=== PATIENT | female | born 1940 | race Caucasian/White ===

== ENCOUNTER 2017-06-14 17:01 | Day surgery (SDC) | payer MEDICARE, OTHER ==
[~2017-06-14] VITALS: Ht 180.3 cm; Wt 89.0 kg
[~2017-06-14 17:01] MED LIST: GABA300C3 PO; LITH450T PO; NYST100010 PO; PROP80TA PO; SYNT25TA PO; VITA100018 PO
[2017-06-14 17:10] VITALS: BP 123/67; PULSE 88; RESP 16; TEMP 98.4; O2SAT 95
[2017-06-14] MEDS ORDERED: SODIUM CHLOR 0.9% 1000 ML INJ 1,000 ML IV SCH (17:30)
[2017-06-14] MEDS ORDERED: SODIUM CHLORIDE 0.9% FLUSH 10 ML FLUSH IV FLUSH PRN (17:30)
--- NOTE | 2017-06-14 17:36 | PD ---
HPI Chief Complaint: Neuro Symptoms/ Deficits Time Seen by Provider: 17:19 Travel History International Travel<30 days: No Contact w/Intl Traveler<30days: No Traveled to known affect area: No History of Present Illness HPI The patient is a 76-year-old female who presents to the emergency department for difficulty swallowing. The patient states she was having Easter dinner yesterday, approximately 2 PM, which she swallowed pork chops and apples. The patient felt like the food got stuck just below the neck, has had difficulty swallowing since then. She is unable to swallow her pills last night and is unable to tolerate liquids or solids today. The patient feels like something is stuck just below the neck, she has been spitting up her saliva all night, had to sleep upright in a recliner. The patient has not been able to tolerate any liquids today. She does have a history of dysphasia, has seen speech therapy in the past for difficulty swallowing, however, states this is different and may be secondary to a fluid bolus. She does not have a design technology professor. She denies any chest pain, shortness of breath, nausea, vomiting, or abdominal pain. Symptoms are moderate. PFSH Past Medical History Cerebrovascular Accident: Yes Diminished Hearing: Yes (TELLER) Hypertension: Yes Thyroid Disease: Yes (HYPO) Social History Alcohol Use: No Tobacco Use: No Substance Use: No Allergies-Medications (Allergen,Severity, Reaction): Coded Allergies: bacitracin (Unverified Allergy, Mild, BLISTERS, 06/14/17) gramicidin D (Unverified Allergy, Mild, BLISTERS, 06/14/17) neomycin (Unverified Allergy, Mild, BLISTERS, 06/14/17) polymyxin B (Unverified Allergy, Mild, BLISTERS, 06/14/17) povidone-iodine (Unverified Allergy, Mild, BLISTERS, 06/14/17) clindamycin (Verified Allergy, Unknown, 06/14/17) Reported Meds & Prescriptions Reported Meds & Active Scripts Active Reported [place] Carbonate ER ([place] Carbonate) 450 Mg Tab 450 Mg PO DAILY Imitrex (Sumatriptan Succinate) 100 Mg Tab 100 Mg PO ONCE PRN If a satisfactory response has not been obtained at 2 hours, a second dose may be administered Procardia (Nifedipine) 10 Mg Cap 20 Mg PO BID Gabapentin 100 Mg Cap 100 Mg PO TID Review of Systems Except as stated in HPI: all other systems reviewed are Neg General / Constitutional: No: Fever HENT: No: Neck Pain Cardiovascular: No: Chest Pain or Discomfort Respiratory: No: Shortness of Breath Gastrointestinal: Positive: Dysphagia, No: Nausea, Vomiting, Abdominal Pain Musculoskeletal: No: Weakness Neurologic: No: Dizziness Physical Exam Narrative GENERAL: Awake, alert, pleasant 76-year-old female who appears her stated age and is in no acute respiratory distress. Patient is sitting upright, spitting into an emesis bag. SKIN: Focused skin assessment warm/dry. HEAD: Atraumatic. Normocephalic. EYES: Pupils equal and round. No scleral icterus. No injection or drainage. ENT: No nasal bleeding or discharge. Mucous membranes pink and moist. NECK: Trachea midline. No JVD. CARDIOVASCULAR: Regular rate and rhythm. No murmur appreciated. RESPIRATORY: No accessory muscle use. Clear to auscultation. Breath sounds equal bilaterally. GASTROINTESTINAL: Abdomen soft, non-tender, nondistended. No rebound tenderness. MUSCULOSKELETAL: No obvious deformities. No clubbing. No cyanosis. No edema. NEUROLOGICAL: Awake and alert. No obvious cranial nerve deficits. Motor grossly within normal limits. Normal speech. PSYCHIATRIC: Appropriate mood and affect; insight and judgment normal. Data Data Last Documented VS Vital Signs Date Time Temp Pulse Resp B/P (MAP) Pulse Ox O2 Delivery O2 Flow Rate FiO2 06/14/17 18:00 98 Room Air 06/14/17 18:00 82 18 119/58 (78) 06/14/17 17:10 98.4 Orders Orders Complete Blood Count With Diff (06/14/17 17:30) Comprehensive Metabolic Panel (06/14/17 17:30) Prothrombin Time / Inr (Pt) (06/14/17 17:30) Act Partial Throm Time (Ptt) (06/14/17 17:30) Iv Access Insert/Monitor (06/14/17 17:30) Ecg Monitoring (06/14/17 17:30) Oximetry (06/14/17 17:30) Sodium Chlor 0.9% 1000 Ml Inj (Ns 1000 M (06/14/17 17:30) Sodium Chloride 0.9% Flush (Ns Flush) (06/14/17 17:30) NPO (06/14/17 17:30) Glucagon Inj (Glucagon Inj) (06/14/17 17:45) Admit Order (Ed Use Only) (06/14/17 19:08) Labs Laboratory Tests Test 06/14/17 17:50 White Blood Count 10.3 TH/MM3 Red Blood Count 3.56 MIL/MM3 Hemoglobin 11.2 GM/DL Hematocrit 34.8 % Mean Corpuscular Volume 97.9 FL Mean Corpuscular Hemoglobin 31.5 PG Mean Corpuscular Hemoglobin Concent 32.2 % Red Cell Distribution Width 13.6 % Platelet Count 210 TH/MM3 Mean Platelet Volume 8.2 FL Neutrophils (%) (Auto) 86.8 % Lymphocytes (%) (Auto) 10.1 % Monocytes (%) (Auto) 2.7 % Eosinophils (%) (Auto) 0.3 % Basophils (%) (Auto) 0.1 % Neutrophils # (Auto) 9.0 TH/MM3 Lymphocytes # (Auto) 1.0 TH/MM3 Monocytes # (Auto) 0.3 TH/MM3 Eosinophils # (Auto) 0.0 TH/MM3 Basophils # (Auto) 0.0 TH/MM3 CBC Comment DIFF FINAL Differential Comment Prothrombin Time 10.6 SEC Prothromb Time International Ratio 1.0 RATIO Activated Partial Thromboplast Time 24.3 SEC Blood Urea Nitrogen 25 MG/DL Creatinine 1.50 MG/DL Random Glucose 123 MG/DL Total Protein 7.8 GM/DL Albumin 3.2 GM/DL Calcium Level 9.8 MG/DL Alkaline Phosphatase 96 U/L Aspartate Amino Transf (AST/SGOT) 12 U/L Alanine Aminotransferase (ALT/SGPT) 10 U/L Total Bilirubin 1.0 MG/DL Sodium Level 148 MEQ/L Potassium Level 4.5 MEQ/L Chloride Level 115 MEQ/L Carbon Dioxide Level 25.7 MEQ/L Anion Gap 7 MEQ/L Estimat Glomerular Filtration Rate 34 ML/MIN MDM Medical Decision Making Medical Screen Exam Complete: Yes Emergency Medical Condition: Yes Medical Record Reviewed: Yes Interpretation(s) Laboratory Tests Test 06/14/17 17:50 White Blood Count 10.3 TH/MM3 Red Blood Count 3.56 MIL/MM3 Hemoglobin 11.2 GM/DL Hematocrit 34.8 % Mean Corpuscular Volume 97.9 FL Mean Corpuscular Hemoglobin 31.5 PG Mean Corpuscular Hemoglobin Concent 32.2 % Red Cell Distribution Width 13.6 % Platelet Count 210 TH/MM3 Mean Platelet Volume 8.2 FL Neutrophils (%) (Auto) 86.8 % Lymphocytes (%) (Auto) 10.1 % Monocytes (%) (Auto) 2.7 % Eosinophils (%) (Auto) 0.3 % Basophils (%) (Auto) 0.1 % Neutrophils # (Auto) 9.0 TH/MM3 Lymphocytes # (Auto) 1.0 TH/MM3 Monocytes # (Auto) 0.3 TH/MM3 Eosinophils # (Auto) 0.0 TH/MM3 Basophils # (Auto) 0.0 TH/MM3 CBC Comment DIFF FINAL Differential Comment Prothrombin Time 10.6 SEC Prothromb Time International Ratio 1.0 RATIO Activated Partial Thromboplast Time 24.3 SEC Blood Urea Nitrogen 25 MG/DL Creatinine 1.50 MG/DL Random Glucose 123 MG/DL Total Protein 7.8 GM/DL Albumin 3.2 GM/DL Calcium Level 9.8 MG/DL Alkaline Phosphatase 96 U/L Aspartate Amino Transf (AST/SGOT) 12 U/L Alanine Aminotransferase (ALT/SGPT) 10 U/L Total Bilirubin 1.0 MG/DL Sodium Level 148 MEQ/L Potassium Level 4.5 MEQ/L Chloride Level 115 MEQ/L Carbon Dioxide Level 25.7 MEQ/L Anion Gap 7 MEQ/L Estimat Glomerular Filtration Rate 34 ML/MIN Differential Diagnosis Differential diagnosis includes food bolus impaction, achalasia, Schatzki's ring , esophageal motility disorder, esophagitis. Narrative Course IV was established, labs are drawn and sent, the patient was placed on cardiac telemetry monitoring and continuous pulse oximetry monitoring. The patient was administered IV fluids. The patient was given glucagon 1 mg intravenously and a call was placed to the on-call design technology professor. I discussed the patient with Dr. Rice who agrees with taking the patient for endoscopy for possible food bolus impaction. Other possibilities include esophagitis, pill esophagitis , achalasia, and Schatzki's ring. Physician Communication Physician Communication I discussed the patient with Dr. Rice who agrees with the same daycare for endoscopy. Diagnosis Primary Impression: Acute esophageal obstruction Admitting Information Admitting Physician Requests: Observation (Patient went to same-day care for endoscopy) Condition: Stable Girma Wallace MD Jun 14, 2017 17:36
[2017-06-14] MEDS ORDERED: NIFE10 PO (17:40)
[2017-06-14] MEDS ORDERED: LITH450T PO (17:40)
[2017-06-14] MEDS ORDERED: GABA100C4 PO (17:40)
[2017-06-14] MEDS ORDERED: IMIT100T PO (17:40)
[2017-06-14] MEDS ORDERED: GLUCAGON 1 MG/ML VIAL IV PUSH ONE (17:45)
[2017-06-14 17:54] LABS: BASOPHIL % 0.1 % (0.0-2.0); EOSINOPHIL % 0.3 % (0.0-4.0); HEMATOCRIT 34.8 % (35.0-46.0); HEMOGLOBIN 11.2 GM/DL (11.6-15.3); LYMPH % 10.1 % (9.0-44.0); MEAN CELL VOLUME 97.9 FL (80.0-100.0); MEAN CORPUSCULAR HEMOGLOBIN 31.5 PG (27.0-34.0); MEAN CORPUSCULAR HGB CONC 32.2 % (32.0-36.0); MEAN PLATELET VOLUME 8.2 FL (7.0-11.0); MONO % 2.7 % (0.0-8.0); MONOCYTE # 0.3 TH/MM3 (0-0.9); NEUT % 86.8 % (16.0-70.0); PLATELET COUNT 210 TH/MM3 (150-450); RED BLOOD COUNT 3.56 MIL/MM3 (4.00-5.30); RED CELL DISTRIBUTION WIDTH 13.6 % (11.6-17.2); WHITE BLOOD COUNT 10.3 TH/MM3 (4.0-11.0)
[2017-06-14 18:00] VITALS: BP 119/58; PULSE 82; RESP 18; O2SAT 98
[2017-06-14 18:09] LABS: PROTHROMBIN TIME - PATIENT 10.6 SEC (9.8-11.6)
[2017-06-14 18:14] LABS: CHLORIDE 115 MEQ/L (98-107); SODIUM (NA) 148 MEQ/L (136-145)
[2017-06-14 18:19] LABS: ALBUMIN 3.2 GM/DL (3.4-5.0); BICARBONATE 25.7 MEQ/L (21.0-32.0); BLOOD UREA NITROGEN 25 MG/DL (7-18); CALCIUM 9.8 MG/DL (8.5-10.1); GLUCOSE,RANDOM 123 MG/DL (74-106)
[2017-06-14 18:22] LABS: ALT (GPT) 10 U/L (10-53); AST (GOT) 12 U/L (15-37); GLOMERULAR FILTRATION RATE 34 ML/MIN (>89)
[2017-06-14 18:24] LABS: TOTAL PROTEIN 7.8 GM/DL (6.4-8.2)
[2017-06-14 18:25] LABS: ALKALINE PHOSPHATASE 96 U/L (45-117)
[2017-06-14 19:05] VITALS: BP 137/67; TEMP 98.3
[2017-06-14] MEDS ORDERED: LACTATED RINGER'S 1000 ML IV PRN (19:30)
[2017-06-14] MEDS ORDERED: SODIUM CHLORID 0.9% 500 ML IV PRN (19:30)
[2017-06-14] MEDS ORDERED: CHLORHEXIDINE GLUCONATE 2 % 1 PACK (2 CLOTHS) TOPICAL PRN (19:30)
--- NOTE | 2017-06-14 20:09 | GIPROC ---
[facility] [address] [place] [address], [id number] EGD PROCEDURE REPORT EXAM DATE: 06/14/2017 PATIENT NAME: Anne Fitzpatrick MR #: [id number] BIRTHDATE: 1940 ATTENDING: Carline Rice MD ORDER #: [id number] [employer]IC[employer] SPECIALIST: Francisco Skinner and Jenny Tobar STATUS: inpatient INDICATIONS: The patient is a 76 yr old female here for an EGD due to foreign body removal, dysphagia, and dyspepsia PROCEDURE PERFORMED: EGD w/ biopsy EGD w/ fb removal MEDICATIONS: None and Per Anesthesia. TOPICAL ANESTHETIC: CONSENT: The patient understands the risks and benefits of the procedure and understands that these risks include, but are not limited to: sedation, allergic reaction, infection, perforation and/or bleeding. Alternative means of evaluation and treatment include, among others: physical exam, x-rays, and/or surgical intervention. The patient elects to proceed with this endoscopic procedure. medical equipment was checked for proper function. Hand hygiene and appropriate measures for infection prevention was taken. After the risks, benefits and alternatives of the procedure were thoroughly explained, Informed consent was verified, confirmed and timeout was successfully executed by the treatment team. The patient was anesthetized with topical anesthesia and the Pentax [id number] endoscope was introduced through the mouth and advanced to the second portion of the duodenum. Retroflexed views revealed no abnormalities The gastroscope was then slowly withdrawn and removed. ESOPHAGUS: There was LA Class B esophagitis noted. 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 The stricture was traversable with resistance. There was a small amount of residual food seen in the proximal esophagus. STOMACH: There was erythematous moderate and erosive gastritis in the gastric antrum. A biopsy was performed using cold forceps. Sample sent for histology. DUODENUM: The duodenal mucosa appeared normal in the bulb and second portion of the duodenum. ADVERSE EVENTS: There were no complications. IMPRESSIONS: 1. There was LA Class B esophagitis noted 2. There was a short stricture in the proximal esophagus 3. There was a small amount of residual food seen in the proximal esophagus 4. There was erythematous gastritis in the gastric antrum; biopsy was performed 5. Normal duodenal mucosa in the bulb and second portion of the duodenum 6. Retroflexed views revealed no abnormalities RECOMMENDATIONS: 1. Await biopsy results. Biopsy results will not be ready for 7-10 days. If you don't hear from us in two weeks, call our office for biopsy results. 2. Anti-reflux regimen 3. Continue PPI 4. CT Neck. Dc home with gi fu in 02 weeks 5. Zantac 150 mg bid PATIENT CONDITION: stable DISPOSITION: Home REPEAT EXAM: Return 3 months EGD with dilatation Carline Rice MD eSigned: Carline Rice MD 06/14/2017 8:09 PM cc: [place]oacano Richards M.D. PATIENT NAME: Anne Fitzpatrick MR#: [id number]
[2017-06-14 20:42] VITALS: BP 140/82; PULSE 81; RESP 18; TEMP 98.6; O2SAT 92
--- NOTE | 2017-06-15 08:18 | MB ---
cc: Carline Rice MDYvonne Aparicio DATE: 06/14/2017 PATIENT OF: Dr. Yvonne Richards REASON FOR CONSULTATION: Esophageal foreign body. HISTORY OF PRESENT ILLNESS: The patient states that she was eating pork and apples last evening and this got stuck in her esophagus. Since then, she has not been able to swallow any food. She is spitting up. She says this has never happened before. GI has been consulted for esophageal foreign body removal. PAST MEDICAL HISTORY: CVA, diminished hearing, hypertension, thyroid disease. SOCIAL HISTORY: No tobacco, no alcohol. ALLERGIES: NEOMYCIN, POLYMYXIN, CLINDAMYCIN. MEDICINES ON ADMISSION: [place], Imitrex, Procardia, gabapentin, fish oil pill. REVIEW OF SYSTEMS: The patient is in no apparent distress, but is unable to swallow. She is constantly spitting up. PHYSICAL EXAMINATION: GENERAL: Reveals a well-nourished lady in no apparent distress. HEAD: Anicteric sclerae. CHEST: Bilateral air entry. NECK: Has bilateral masses on either side of the neck. Trachea is deviated to the right. CARDIOVASCULAR: S1, S2 within normal limits. CHEST: Bilateral air entry. ABDOMEN: Soft, nontender. No hepatosplenomegaly. Bowel sounds are present. NEUROLOGIC: AUTOMOTIVE WINDOW TINTER exam is nonfocal. RECTAL: Deferred at this time. LABORATORY DATA: Revealed white cell 10.3, hemoglobin 11.2, creatinine 1.5. Liver function tests are normal. IMPRESSION: Esophageal foreign body. RECOMMENDATIONS: EGD with foreign body planned for today. In addition, the patient advised to followup with PCP and get a CT of the neck and possible followup with ENT for bilateral neck masses. Thank you for this referral. MD EVER Vogel/GUILLERMINA , 08:29 PM , 09:00 PM
--- NOTE | 2017-06-16 13:30 | EKG ---
Date Performed: 06/14/2017 Time Performed: 19:30:00 PTAGE: 76 years EKG: Sinus rhythm PACs ABNORMAL RHYTHM ECG NO PREVIOUS TRACING DOCTOR: Mayank King Interpretating Date/Time 06/16/2017 13:28:08
== END 2017-06-14 21:10 | disposition home or self-care (01) ==
LOC: PHED 17:01 → UNDOADMOB 19:04 → PHEDA 19:04 → HPAC 19:05 → PHEDA 19:05 → PHEND 19:08
PROVIDERS: ATTEND Internal Medicine Gastroenterology
DX: K22.2 Esophageal obstruction (principal); K20.9 Esophagitis, unspecified; K29.70 Gastritis, unspecified, without bleeding; I10 Essential (primary) hypertension
CPT/HCPCS: 00731; 43239; 80053; 85025; 85610; 85730; 88305; 88312; 93005; 96374; 99284; J1610; J7030; J7120

== ENCOUNTER 2017-07-21 16:12 | Emergency (ER) | payer OTHER ==
[2017-07-21 17:10] LABS: AUTOMATED NEUTROPHIL # 2.7 TH/MM3 (1.8-7.7); BASOPHIL % 0.6 % (0.0-2.0); EOSINOPHIL # 0.2 TH/MM3 (0-0.4); EOSINOPHIL % 3.3 % (0.0-4.0); HEMATOCRIT 33.6 % (35.0-46.0); HEMO FLAGS DIFF FINAL; LYMPH % 29.7 % (9.0-44.0); LYMPHOCYTE # 1.4 TH/MM3 (1.0-4.8); MEAN CELL VOLUME 95.8 FL (80.0-100.0); MEAN CORPUSCULAR HEMOGLOBIN 31.3 PG (27.0-34.0); MEAN CORPUSCULAR HGB CONC 32.7 % (32.0-36.0); MEAN PLATELET VOLUME 8.8 FL (7.0-11.0); MONO % 7.7 % (0.0-8.0); MONOCYTE # 0.4 TH/MM3 (0-0.9); NEUT % 58.7 % (16.0-70.0); PLATELET COUNT 163 TH/MM3 (150-450); RED BLOOD COUNT 3.51 MIL/MM3 (4.00-5.30); RED CELL DISTRIBUTION WIDTH 13.2 % (11.6-17.2); WHITE BLOOD COUNT 4.7 TH/MM3 (4.0-11.0)
[2017-07-21 17:26] LABS: CHLORIDE 112 MEQ/L (98-107); POTASSIUM 4.2 MEQ/L (3.5-5.1); SODIUM (NA) 143 MEQ/L (136-145)
[2017-07-21 17:28] LABS: CALCIUM 9.5 MG/DL (8.5-10.1)
[2017-07-21 17:29] LABS: ANION GAP 6 MEQ/L (5-15); BLOOD UREA NITROGEN 26 MG/DL (7-18); GLUCOSE,RANDOM 106 MG/DL (74-106)
[2017-07-21 17:32] LABS: GLOMERULAR FILTRATION RATE 40 ML/MIN (>89)
[2017-07-21] MEDS: IOHEXOL 350 MG/ML 10 ML VIAL (for RAD DIAG) IVCONTRAST (17:56)
== END 2017-07-21 18:34 | disposition home or self-care (01) ==
LOC: PHED 16:12
DX: E04.9 Nontoxic goiter, unspecified (principal); F31.9 Bipolar disorder, unspecified; I10 Essential (primary) hypertension; E03.9 Hypothyroidism, unspecified; Z86.73 Personal history of transient ischemic attack (TIA), and cerebral infarction without residual deficits; Z79.899 Other long term (current) drug therapy; Z88.8 Allergy status to other drugs, medicaments and biological substances
CPT/HCPCS: 70491; 80048; 84443; 85025; 99285